=== PATIENT | female | born 1955 | race Asian ===

== ENCOUNTER 2024-05-21 12:26 | Emergency (ER) | payer OTHER ==
[~2024-05-21] VITALS: Ht 152.4 cm; Wt 52.6 kg
[2024-05-21 13:29] VITALS: TEMP 98.1
[2024-05-21 13:51] LABS: CALCIUM, SERUM 8.9 mg/dL (8.5-10.1); CREATININE 0.9 mg/dL (0.6-1.3); POTASSIUM 4.3 mmol/L (3.5-5.1)
[2024-05-21 13:55] LABS: BASOPHILS % (AUTO) 0.8 % (0.0-2.0); EOSINOPHILS # (AUTO) 0.1 K/uL (0.0-0.7); EOSINOPHILS % (AUTO) 1.1 % (0.0-6.0); HEMATOCRIT 40 % (33-45); HEMOGLOBIN 13.7 g/dL (11.5-14.8); LYMPHOCYTES # (AUTO) 1.4 K/uL (0.8-4.8); MEAN CORPUSCULAR HEMOGLOBIN 31 PG (26.0-33.0); MEAN CORPUSCULAR HGB CONC 34 g/dl (31.0-36.0); MEAN CORPUSCULAR VOLUME 90 fL (82-100); MONOCYTES # (AUTO) 0.5 K/uL (0.1-1.30); MONOCYTES % (AUTO) 8.1 % (2.0-12.0); NEUTROPHILS # (AUTO) 3.7 K/uL (1.8-8.9); PLATELET COUNT (AUTO) 188 K/uL (150-450); RED BLOOD CELL COUNT(AUTO) 4.44 MIL/uL (4.0-5.2); RED CELL DISTRIBUTION WIDTH 13.1 % (11.5-15.0); WHITE BLOOD COUNT (AUTO) 5.7 K/uL (4.3-11.0)
[2024-05-21] MEDS ORDERED: IOHEXOL-350 100 ML VIAL IV ONE (14:03)
[2024-05-21] MEDS ORDERED: CT SWABBABLE VALVE TRANS SET 1 EA INFUS.SET MC ONE (14:03)
[2024-05-21] MEDS ORDERED: IV NS 0.9% 250 ML IV ONE (14:03)
[2024-05-21 14:05] LABS: INR 0.97 (0.91-1.10); PARTIAL THROMBOPLASTIN TIME 26.2 SEC (24.3-34.3); PROTHROMBIN TIME 10.3 SECS (9.2-11.1)
[2024-05-21] MEDS ORDERED: CYCL5TAB PO (16:05)
[2024-05-21] MEDS ORDERED: METH4TAB17 PO (16:05)
[2024-05-21] MEDS ORDERED: IBUP-1955 PO (16:05)
[2024-05-21] MEDS ORDERED: LIDO30AD10 TP (16:05)
[2024-05-21 16:25] VITALS: BP 155/82; O2SAT 100
== END 2024-05-21 16:26 | disposition home or self-care (01) ==
LOC: ER 12:47
DX: M54.12 Radiculopathy, cervical region (principal); R51.9 Headache, unspecified
CPT/HCPCS: 99285; 72125; 93005; 70498; 70496; 85025; 80048; 36415; 85730; 70450; J7050; Q9967